=== PATIENT | male | born 2005 | race Two or more races ===

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

== ENCOUNTER 2023-06-16 18:31 | Inpatient (IN) | payer OTHER ==
[~2023-06-16] VITALS: Ht 175.3 cm; Wt 72.9 kg
[2023-06-16 19:15] LABS: Basophils # (auto) 0.1 10 ^3/uL (0-0.2); Basophils % (auto) 0.5 % (0.0-2.0); Eosinophils # (auto) 0.1 10 ^3/uL (0-0.8); Eosinophils % (auto) 0.4 % (0.0-7.0); Hematocrit 45.2 % (41.0-53.0); Hemoglobin 15.5 g/dL (13.5-17.5); Lymphocytes # (auto) 0.9 10 ^3/uL (0.4-5.4); Mean Corpuscular Hemoglobin 29.7 pg (28.0-32.0); Mean Corpuscular Hgb Conc. 34.4 g/dL (32.0-36.0); Mean Corpuscular Volume 86.3 fL (80.0-100.0); Monocytes # (auto) 0.5 10 ^3/uL (0-1.3); Monocytes % (auto) 3.4 % (0.0-12.0); Neutrophils % (auto) 88.7 % (37.0-80.0); Red Blood Cells 5.23 10^6/uL (4.5-5.90); White Blood Cell 13.5 10^3/uL (4.4-10.8)
[2023-06-16] MEDS ORDERED: LIDOCAINE VISCOUS 2% 15ML UD PO ONE (19:30)
[2023-06-16] MEDS ORDERED: MAALOX PLUS or MAALOX 30 ML PO ONE (19:30)
[2023-06-16 19:38] LABS: Urine WBC None Seen /hpf (0 - 3)
[2023-06-16 19:49] LABS: Urine Amorphous Crystal MOD /hpf (None Seen); Urine Bacteria FEW /hpf (None Seen); Urine Blood Negative /uL (Negative); Urine Mucus FEW (None Seen); Urine Specific Gravity 1.026 (1.001-1.035)
[2023-06-16 20:07] LABS: Albumin 4.5 g/dL (3.4-5.0); Calcium 9.2 mg/dL (8.5-10.1); Potassium 3.6 mmol/L (3.5-5.1)
[2023-06-16 20:09] LABS: BUN/Creatinine Ratio 7.3 (10.0-20.0); Bilirubin, Total 0.9 mg/dL (0.2-1.0); Total Protein 8.1 g/dL (6.4-8.2)
[2023-06-16] MEDS ORDERED: MORPHINE SULFATE 4 MG/ML SYR/VIAL IV ONE (20:45)
[2023-06-16] MEDS ORDERED: ONDANSETRON HCL 4 MG/2 ML VIAL IV ONE (20:45)
[2023-06-16] MEDS ORDERED: MORPHINE SULFATE INJ 2 MG/ml SYRG IV PRN (21:30)
[2023-06-16] MEDS ORDERED: ONDANSETRON HCL 4 MG/2 ML VIAL IV PRN (21:30)
[2023-06-16 21:54] LABS: INR 1.1 (0.9-1.15); Partial Thromboplastin Time 25.9 SEC (24.5-34.5)
[2023-06-16] MEDS: SODIUM CHLORIDE 0.9% 1,000 ML IV SCH (23:52)
[2023-06-17] MEDS: metroNIDAZOLE 500MG/100ML 100 ML IV SCH ×4 (01:37→22:27)
[2023-06-17] MEDS: SODIUM CHLORIDE 0.9% 1,000 ML IV SCH (02:52)
[2023-06-17 05:59] LABS: Basophils # (auto) 0 10 ^3/uL (0-0.2); Basophils % (auto) 0.1 % (0.0-2.0); Eosinophils # (auto) 0 10 ^3/uL (0-0.8); Eosinophils % (auto) 0.1 % (0.0-7.0); Hematocrit 42.2 % (41.0-53.0); Hemoglobin 14.6 g/dL (13.5-17.5); Lymphocytes # (auto) 1.6 10 ^3/uL (0.4-5.4); Lymphocytes % (auto) 9.9 % (10.0-50.0); Mean Corpuscular Hgb Conc. 34.5 g/dL (32.0-36.0); Mean Corpuscular Volume 86.9 fL (80.0-100.0); Monocytes % (auto) 12.5 % (0.0-12.0); Neutrophils # (auto) 12.2 10 ^3/uL (1.6-8.6); Neutrophils % (auto) 77.4 % (37.0-80.0); Red Blood Cells 4.85 10^6/uL (4.5-5.90); Red Cell Distribution Width 12.8 % (11.8-14.3); White Blood Cell 15.8 10^3/uL (4.4-10.8)
[2023-06-17 06:17] LABS: Potassium 3.7 mmol/L (3.5-5.1)
[2023-06-17 06:27] LABS: Albumin 3.7 g/dL (3.4-5.0); BUN/Creatinine Ratio 8.2 (10.0-20.0); Bilirubin, Total 1.1 mg/dL (0.2-1.0); Calcium 8.4 mg/dL (8.5-10.1); Total Protein 7.1 g/dL (6.4-8.2)
[2023-06-17 07:50] VITALS: PULSE 100; RESP 16; O2SAT 97
[2023-06-17] MEDS: cefTRIAXone 1GM/50ML D5W 50 ML IV SCH (09:06)
[2023-06-17] MEDS: PANTOPRAZOLE 40 MG/10 ML VIAL INJ IV SCH (10:20)
[2023-06-17] MEDS ORDERED: MEPERIDINE HCL (25 MG/ML) 1ML VIAL ONE (14:29)
[2023-06-17] MEDS ORDERED: MIDAZOLAM HCL 2MG/2ML 2ml VIAL (1mg/ml) ONE (14:29)
[2023-06-17] MEDS ORDERED: fentaNYL CITRATE 100 MCG/2 ML VL ONE (14:29)
[2023-06-17] MEDS ORDERED: PROPOFOL 10 MG/ML 20 ML IV ONE (15:03)
[2023-06-17] MEDS ORDERED: DexAMETHasone SOD PHOS 10MG/1ML VIAL INJ ONE (15:03)
[2023-06-17] MEDS ORDERED: SUGAMMADEX 200mg/2ml Vial (100MG/ML) IV ONE (15:06)
[2023-06-17] MEDS ORDERED: HYDROmorphone HCL 2 MG/ML VL/or syr IV PRN (15:15)
[2023-06-17] MEDS ORDERED: ePHEDrine SULFATE 50 MG/ML AMP IV PRN (15:15)
[2023-06-17] MEDS ORDERED: LABETALOL HCL 5 MG/ML 4ML SYRINGE IV PRN (15:15)
[2023-06-17] MEDS ORDERED: ONDANSETRON HCL 4 MG/2 ML VIAL IV PRN (15:15)
[2023-06-17] MEDS ORDERED: KETOROLAC TROMETH 30 MG/ML 1ML VIAL IV ONE (15:15)
[2023-06-17] MEDS ORDERED: MIDAZOLAM HCL 2MG/2ML 2ml VIAL (1mg/ml) IV PRN (15:15)
[2023-06-17] MEDS ORDERED: MORPHINE SULFATE 4 MG/ML SYR/VIAL IV PRN (15:15)
[2023-06-17 17:24] VITALS: BP 128/66; PULSE 82; RESP 18; TEMP 98.9; O2SAT 97
[2023-06-17 22:00] VITALS: BP 139/80; PULSE 91; RESP 18; TEMP 98.2; O2SAT 95
[2023-06-18 05:00] VITALS: BP 126/76; PULSE 78; RESP 18; TEMP 98; O2SAT 98
[2023-06-18] MEDS: SODIUM CHLORIDE 0.9% 1,000 ML IV SCH ×2 (05:48→13:12)
[2023-06-18 05:54] LABS: Basophils # (auto) 0 10 ^3/uL (0-0.2); Basophils % (auto) 0.1 % (0.0-2.0); Eosinophils # (auto) 0 10 ^3/uL (0-0.8); Hematocrit 42.1 % (41.0-53.0); Hemoglobin 14.8 g/dL (13.5-17.5); Lymphocytes # (auto) 1.4 10 ^3/uL (0.4-5.4); Lymphocytes % (auto) 11.7 % (10.0-50.0); Mean Corpuscular Hemoglobin 30.7 pg (28.0-32.0); Mean Corpuscular Hgb Conc. 35.1 g/dL (32.0-36.0); Mean Corpuscular Volume 87.6 fL (80.0-100.0); Monocytes # (auto) 1.3 10 ^3/uL (0-1.3); Monocytes % (auto) 10.3 % (0.0-12.0); Neutrophils # (auto) 9.6 10 ^3/uL (1.6-8.6); Neutrophils % (auto) 77.9 % (37.0-80.0); Nucleated Red Blood Cells % 0.1 %; Red Cell Distribution Width 12.9 % (11.8-14.3); White Blood Cell 12.3 10^3/uL (4.4-10.8)
[2023-06-18] MEDS: metroNIDAZOLE 500MG/100ML 100 ML IV SCH (06:06)
[2023-06-18] MEDS: cefTRIAXone 1GM/50ML D5W 50 ML IV SCH (08:29)
[2023-06-18] MEDS: PANTOPRAZOLE 40 MG/10 ML VIAL INJ IV SCH (08:29)
[2023-06-18 08:52] VITALS: BP 125/81; PULSE 71; RESP 16; TEMP 98.8; O2SAT 99
[2023-06-18] MEDS ORDERED: HYDR-4902 PO (10:04)
[2023-06-18] MEDS ORDERED: MET500T PO (10:04)
[2023-06-18] MEDS ORDERED: LEVO500T91 PO (10:04)
[2023-06-18 13:00] VITALS: BP 129/75; PULSE 94; RESP 12; TEMP 99.1; O2SAT 98
== END 2023-06-18 12:49 | disposition home or self-care (01) | DRG 710 ==
LOC: ER 18:31 → OVERFLOW 21:25 → CENTRAL 06-17 16:30
PROVIDERS: ADMIT Family Medicine; ATTEND Family Medicine
PROC: 0DTJ4ZZ Resection of Appendix, Percutaneous Endoscopic Approach (ICD-10-PCS; principal; 2023-06-17 14:34)
DX: A41.9 Sepsis, unspecified organism (principal); K35.80 Unspecified acute appendicitis; E86.0 Dehydration
CPT/HCPCS: 36415; 74176; 80053; 81001; 83690; 85025; 85610; 85730; 86850; 86900; 86901; C9113; G0378; J0696; J1100; J2250; J2405; J2704; J3490; J7060